=== PATIENT | female | born 1965 | race Caucasian/White ===

== ENCOUNTER 2016-11-18 15:45 | Emergency (ER) | payer SELFPAY ==
[~2016-11-18] VITALS: Ht 167.6 cm; Wt 85.0 kg
[2016-11-18 15:47] VITALS: Ht 167.6 cm; Wt 85.0 kg
[2016-11-18] MEDS ORDERED: ONDANSETRON (ODT) 4 MG TAB ODT STA (16:49)
[2016-11-18] MEDS ORDERED: HYDROCODONE/APAP (5/325) TAB PO ONE (17:00)
--- NOTE | 2016-11-18 17:38 | RADRPT ---
PROCEDURE: XR Lumbar Spine. CLINICAL INDICATION: Lumbar spine pain. TECHNIQUE: AP, lateral, and cone-down lateral view of the lumbar spine were obtained. COMPARISON: No prior studies are available for comparison. FINDINGS: The alignment of the lumbar spine is within normal limits. The vertebral body heights and marrow de nsity are normal in appearance. There is small anterior osteophytes at L5-S1 with mild narrowing of the disc-space. There are minimal discogenic endplate changes. There is preservation of the remai angeli intervertebral disc spaces. There is mild to moderate facet spondylosis at L5-S1 with suggesti on of neural foraminal narrowing at this level. The remaining neural foramina appear patent. The p araspinal soft tissues unremarkable. IMPRESSION: 1. Mild to moderate degenerative disc disease at L5-S1 with mild disc-space narrowing and associate d discogenic endplate changes. 2. Mild to moderate facet spondylosis at L5-S1 with suggestion of neural foraminal narrowing at thi s level. 3. No evidence of fracture. RPTAT: HGAS .Shad Weber MD, Date Time Electronically viewed and signed by .Shad Weber MD, on 11/18/2016 17:37 .S/
[2016-11-18] MEDS ORDERED: NAPR-260 PO (18:02)
[2016-11-18] MEDS ORDERED: HYDR-906 PO (18:02)
--- NOTE | 2016-11-18 22:10 | ERD ---
ER Documentation Chief Complaint Date/Time DATE: 11/18/16 TIME: 22:07 Chief Complaint Complains of back pain after a fall HPI This patient is a 51-year-old female presenting to the emergency department with complaints of lower back pain after fall earlier today. She states she was shopping at a store when she accidentally slipped on a wet floor and fell backwards onto her L-spine. Symptoms have been constant. The patient describes her pain is localized to the left lower back. She denies any loss of consciousness, other injuries, severe pain, loss of bowel or bladder function, or other symptoms. ROS All systems reviewed and are negative except as per history of present illness. Medications Home Meds Active Scripts Naproxen* (Naprosyn*) 500 Mg Tablet, 500 MG PO BID Y for PAIN AND/OR INFLAMMATION, #30 TAB Prov:CHRISTINE GALVEZ PA-C 11/18/16 Hydrocodone/Acetaminophen (Ponderosa 5-325 Tablet) 1 Each Tablet, 1 TAB PO Q6H Y for PAIN, #10 TAB Prov:CHRISTINE GALVEZ PA-C 11/18/16 Allergies Allergies: Coded Allergies: No Known Allergy (Unverified , 11/18/16) PMhx/Soc History of Surgery: Yes (csection x3, appendectomy) Anesthesia Reaction: No Hx Neurological Disorder: No Hx Respiratory Disorders: No Hx Cardiac Disorders: No Hx Psychiatric Problems: No Hx Miscellaneous Medical Probl: Yes (DM) Hx Alcohol Use: No Hx Substance Use: No Hx Tobacco Use: No Smoking Status: Never smoker Physical Exam Vitals Vital Signs Date Time Temp Pulse Resp B/P Pulse Ox O2 Delivery O2 Flow Rate FiO2 11/18/16 15:47 99.0 84 20 136/85 98 Physical Exam Const: Nontoxic, well-appearing female in mild distress secondary to pain. Head: Atraumatic Eyes: Normal Conjunctiva ENT: Normal External Ears, Nose and Mouth. Neck: Full range of motion..~ No meningismus. Resp: Clear to auscultation bilaterally Cardio: Regular rate and rhythm, no murmurs Abd: Soft, non tender, non distended. Normal bowel sounds Skin: No petechiae or rashes Back: No midline or flank tenderness. There is some mild tenderness palpation of the left lower lumbar region. Ext: No cyanosis, or edema Neur: Awake and alert Psych: Normal Mood and Affect Results 24 hrs Current Medications Medications (Trade) Dose Ordered Sig/Tricia Route PRN Reason Start Time Stop Time Status Last Admin Dose Admin Acetaminophen/ Hydrocodone Bitart (Ponderosa (5/325)) 1 tab ONCE ONCE PO 11/18/16 17:00 11/18/16 17:03 DC 11/18/16 16:57 Ondansetron HCl (Zofran Odt) 4 mg ONCE STAT ODT 11/18/16 16:49 11/18/16 16:50 DC 11/18/16 16:57 [place] [id number] Radiology Main Line: [phone] DIAGNOSTIC IMAGING REPORT Patient: REBEKAH YOUSIF : 1965 Age: 51 Sex: F MR #: [id number] DOS: 11/18/16 0000 Ordering MD: CHRISTINE GALVEZ PA-C Location: [facility] Room/Bed: PROCEDURE: XR Lumbar Spine. CLINICAL INDICATION: Lumbar spine pain. TECHNIQUE: AP, lateral, and cone-down lateral view of the lumbar spine were obtained. COMPARISON: No prior studies are available for comparison. FINDINGS: The alignment of the lumbar spine is within normal limits. The vertebral body heights and marrow density are normal in appearance. There is small anterior osteophytes at L5-S1 with mild narrowing of the disc-space. There are minimal discogenic endplate changes. There is preservation of the remaining intervertebral disc spaces. There is mild to moderate facet spondylosis at L5- S1 with suggestion of neural foraminal narrowing at this level. The remaining neural foramina appear patent. The paraspinal soft tissues unremarkable. IMPRESSION: 1. Mild to moderate degenerative disc disease at L5-S1 with mild disc-space narrowing and associated discogenic endplate changes. 2. Mild to moderate facet spondylosis at L5-S1 with suggestion of neural foraminal narrowing at this level. 3. No evidence of fracture. RPTAT: HGAS .Shad Weber MD, MD Date Time Electronically viewed and signed by .Shad Weber MD, MD on 11/18/2016 17: 37 .S/ CC: CHRISTINE GALVEZ PA-C/[facility] 51-year-old female presents to the emergency department complaining of left lower back pain after fall earlier today. On physical examination the patient' s vitals are within normal limits. The patient does have some tenderness palpation of the left lower lumbar spine. There are no step-offs or midline tenderness noted on back exam. X-ray was negative for acute fracture. The patient was medicated in the department of p.o. Zofran and p.o. Ponderosa and she is feeling significantly improved on reevaluation. I shared the x-ray results with the patient and I advise close follow-up with the primary care physician. I have low suspicion for cauda equina, vertebral fracture, epidural abscess, or other emergent conditions. The patient is stable for outpatient management with a prescription for Ponderosa and naproxen. Strict ER return precautions were discussed and the patient demonstrated good understanding. Departure Diagnosis: Primary Impression: Injury of back Condition: Fair Patient Instructions: Back Sprain/Strain Referrals: [facility] Usted se harris hecho un examen mdico de control que le indica que no est en ana condicin que requiera tratamiento urgente en el Departamento de Emergencia. Un estudio ms profundo y el tratamiento de antoine condicin pueden esperar sin ningn riesgo hasta que usted sea atendida/o en el consultorio de antoine mdico o ana cl alexus. Es responsabilidad suya arreglar ana ban para el seguimiento del vinny. MANEJO DE CONDICIONES NO URGENTES EN EL FUTURO 1) Si usted tiene un mdico de atencin primaria: Usted debera llamar a antoine mdico de atencin primaria antes de venir al departamento de emergencia. Despus de las horas de consultorio, antoine doctor o antoine asociado/a est disponible por telfono. El mdico o enfermero de joey en el servicio telefnico puede asesorarle por meenakshi medio para atender el problema, o vinny contrario se puede programar ana ban. 2) Si usted no tiene un mdico de atencin primaria: Llame al mdico o clnica de referencia que aparece abajo lloyd las horas de consultorio para hacer ana ban para que le vean. CLINICAS: [place] [id number] [phone] [facility] [phone] [facility] [phone] [place] [address] [phone] [place] [id number] [phone] [facility]. [phone] [address] Additional Instructions: No mas mejor en 2-3 patel, regresar. Mas peor en 24 horas, regresear rapidamente. Ir a doctor primario in 5-7 patel. Usar instrucciones cuando juan f medicamento. CHRISTINE GALVEZ PA-C Nov 18, 2016 22:10
== END 2016-11-18 18:23 | disposition home or self-care (01) ==
LOC: FTE 15:45
DX: S39.92XA Unspecified injury of lower back, initial encounter (principal); E11.9 Type 2 diabetes mellitus without complications; W01.0XXA Fall on same level from slipping, tripping and stumbling without subsequent striking against object, initial encounter; Y92.512 Supermarket, store or market as the place of occurrence of the external cause
CPT/HCPCS: 72100